=== PATIENT | female | born 2000 | race Two or more races ===

== ENCOUNTER 2021-03-17 08:40 | Emergency (ER) | payer SELFPAY ==
[~2021-03-17] VITALS: Ht 172.7 cm; Wt 80.0 kg
[2021-03-17] MEDS ORDERED: IPRATROPIUM BROMIDE (0.02%) 0.5MG/2.5ML NEB HHN STA (10:04)
[2021-03-17] MEDS ORDERED: ALBUTEROL (0.083%) 2.5MG/3ML NEB HHN STA (10:04)
[2021-03-17] MEDS ORDERED: ALBU90AE INH (10:13)
[2021-03-17 10:25] VITALS: BP 139/89
== END 2021-03-17 12:07 | disposition home or self-care (01) ==
LOC: ER 08:40
DX: J45.901 Unspecified asthma with (acute) exacerbation (principal); F12.10 Cannabis abuse, uncomplicated; Z87.891 Personal history of nicotine dependence; Z88.0 Allergy status to penicillin
CPT/HCPCS: 71046; 81025; 94640; 99283; Z7610